=== PATIENT | male | born 1965 | race Two or more races ===

== ENCOUNTER 2023-12-14 17:10 | Emergency (ER) | payer OTHER ==
[~2023-12-14] VITALS: Ht 167.6 cm; Wt 84.7 kg
[2023-12-14 17:45] VITALS: BP 131/73; PULSE 61; RESP 18; O2SAT 97
== END 2023-12-15 05:21 | disposition home or self-care (01) ==
LOC: ER 17:10
DX: S00.01XA Abrasion of scalp, initial encounter (principal); R42 Dizziness and giddiness; W22.8XXA Striking against or struck by other objects, initial encounter; Y93.89 Activity, other specified; Y92.89 Other specified places as the place of occurrence of the external cause; Y99.8 Other external cause status